=== PATIENT | male | born 1965 | race Caucasian/White ===

== ENCOUNTER → 2017-08-24 | Outpatient (CLI) | payer OTHER ==
[~2017-08-24] MED LIST: GLUCOSE TABLETS; HYDR-3240 PO
== END ==
LOC: RAD 13:51
PROVIDERS: ATTEND Internal Medicine Endocrinology, Diabetes & Metabolism
DX: R56.9 Unspecified convulsions (principal)
CPT/HCPCS: 70450

== ENCOUNTER 2018-05-12 00:18 | Emergency (ER) | payer MEDICAID, OTHER ==
[2018-05-12] MEDS ORDERED: LISI-167 PO (00:24)
[2018-05-12 01:31] VITALS: BP 148/91
== END 2018-05-12 01:33 | disposition home or self-care (01) ==
LOC: ED 00:48
DX: F15.10 Other stimulant abuse, uncomplicated (principal); M79.1 Myalgia; Z72.9 Problem related to lifestyle, unspecified; Z90.49 Acquired absence of other specified parts of digestive tract
CPT/HCPCS: 99283

== ENCOUNTER 2018-11-13 18:04 | Emergency (ER) | payer MEDICAID ==
[~2018-11-13] VITALS: Ht 177.8 cm; Wt 75.0 kg
[~2018-11-13 18:04] MED LIST changes: +LISI-167 PO
[2018-11-13 18:44] LABS: MEAN CORPUSCULAR HEMOGLOBIN 30.8 pg (27.5-34.5); MEAN CORPUSCULAR HGB CONC 34.1 g/dL (33.2-36.2); MEAN CORPUSCULAR VOLUME 90.2 fL (81-97); MEAN PLATELET VOLUME 8.3 fL (7.4-10.4); PLATELET COUNT 304 x10^3/uL (130-400); RED BLOOD COUNT 5.08 x10^6/uL (4.38-5.82); RED CELL DISTRIBUTION WIDTH 13.8 % (9.4-14.8)
[2018-11-13 18:45] LABS: ALBUMIN 3.9 g/dL (3.4-5.0); ANION GAP 6 mmol/L (5-15); CALCIUM 8.7 mg/dL (8.5-10.1); CHLORIDE 105 mmol/L (98-107); CREATININE 0.82 mg/dL (0.7-1.3)
[2018-11-13 19:03] LABS: BASOPHILS # (AUTO) 0.08 x10^3/uL (0-0.1); BASOPHILS % (AUTO) 1 % (0-1); EOSINOPHILS # (AUTO) 0.14 x10^3/uL (0-0.4); EOSINOPHILS % (AUTO) 1 % (1-7); LYMPHOCYTES # (AUTO) 1.84 x10^3/uL (1-3.4); LYMPHOCYTES % (AUTO) 18 % (22-44); MD SCAN; MONOCYTES # (AUTO) 1.47 x10^3/uL (0.2-0.8); MONOCYTES % (AUTO) 14 % (2-9); NEUTROPHILS # (AUTO) 6.97 x10^3/uL (1.8-6.8); NEUTROPHILS % (AUTO) 66 % (42-75)
--- NOTE | 2018-11-13 20:45 | NUR ---
pt to ed for lower right abd pain radiating to r testicle since 0300 this am. connected to monitors. vss. us complete. ua collected. awaiting results and edmd assessment.
[2018-11-13 20:47] VITALS: BP 143/98
[2018-11-13 20:56] LABS: MICROSCOPIC INDICATED
[2018-11-13 20:57] LABS: CULTURE INDICATED? YES
[2018-11-13] MEDS ORDERED: BICILLIN-LA 2,400,000 UNITS/4 ML IM ONE (21:30)
[2018-11-13] MEDS ORDERED: DOXYCYCLINE 100MG TABLET PO ONE (21:30)
[2018-11-13] MEDS ORDERED: CEFTRIAXONE 250 MG IM ONE (21:30)
[2018-11-13] MEDS ORDERED: ACETAMINOPHEN 500 MG TABLET PO ONE (21:30)
[2018-11-13] MEDS ORDERED: CEFTRIAXONE 250 MG ONE (21:44)
[2018-11-13] MEDS ORDERED: ACETAMINOPHEN 500 MG TABLET ONE (21:44)
[2018-11-13] MEDS ORDERED: DOXYCYCLINE 100MG TABLET ONE (21:44)
== END 2018-11-13 22:08 | disposition home or self-care (01) ==
LOC: ED 22:07
DX: A51.0 Primary genital syphilis (principal); N45.1 Epididymitis; F15.20 Other stimulant dependence, uncomplicated; F17.200 Nicotine dependence, unspecified, uncomplicated
CPT/HCPCS: 36415; 76870; 80048; 81001; 82040; 85025; 87086; 87491; 87591; 93975; 96372; 99284; J0561; J0696

== ENCOUNTER 2019-03-18 16:45 | Emergency (ER) | payer MEDICAID, OTHER ==
[~2019-03-18] VITALS: Ht 170.2 cm; Wt 75.0 kg
[2019-03-18] MEDS ORDERED: PLEASE ENTER HEIGHT AND WEIGHT MC SCH (16:51)
[2019-03-18] MEDS ORDERED: IBUPROFEN 200 MG TABLET ONE (16:52)
[2019-03-18] MEDS ORDERED: IBUPROFEN 200 MG TABLET PO ONE (17:00)
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
[2019-03-18 17:10] VITALS: BP 158/93
== END 2019-03-18 17:13 | disposition home or self-care (01) ==
LOC: ED 16:53
DX: S20.212A Contusion of left front wall of thorax, initial encounter (principal); Z90.49 Acquired absence of other specified parts of digestive tract; Z72.9 Problem related to lifestyle, unspecified; Y08.89XA Assault by other specified means, initial encounter; Y93.89 Activity, other specified; Y92.89 Other specified places as the place of occurrence of the external cause; Y99.8 Other external cause status
CPT/HCPCS: 71045; 99283

== ENCOUNTER 2020-11-20 00:02 | Emergency (ER) | payer SELFPAY ==
[~2020-11-20] VITALS: Ht 175.3 cm; Wt 79.5 kg
[~2020-11-20 00:02] MED LIST changes: +HYDR-2214 PO; -HYDR-3240 PO
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
[2020-11-20 01:07] VITALS: BP 149/93
== END 2020-11-20 01:34 | disposition home or self-care (01) ==
LOC: ED 00:39
DX: L03.114 Cellulitis of left upper limb (principal); M79.642 Pain in left hand; M79.89 Other specified soft tissue disorders; R11.2 Nausea with vomiting, unspecified; Z90.89 Acquired absence of other organs; Z48.00 Encounter for change or removal of nonsurgical wound dressing
CPT/HCPCS: 99283